=== PATIENT | female | born 1990 | race American Indian/Alaskan Native ===

== ENCOUNTER 2020-01-09 17:21 | Outpatient (CLI) | payer MEDICAID ==
[2020-01-09 18:07] VITALS: BP 115/70
--- NOTE | 2020-01-09 20:13 | Ultrasound Report ---
Limited OB Ultrasound Biophysical profile HISTORY: F/U FALL. TECHNIQUE: Grayscale and color imaging performed. COMPARISON: None FINDINGS: Single viable intrauterine gestation with cephalic presentation. MORRO was 21 cm. Heart rate was 130 bpm. Placenta is seen along the right lateral aspect with no evidence of abruption. On biophysical profile, the fetus received a score of 2 out of 2 for breathing movement, movement, po sture/tone, and MORRO. Total score was 8 out of 8. IMPRESSION: 1. Single viable intrauterine gestation as above. 2. Normal BPP. Signer Name: Bret Sinha MD Signed: 01/09/2020 8:09 PM Workstation Name: [id number]
== END 2020-01-09 21:57 | disposition home or self-care (01) ==
LOC: TRG 17:21
PROVIDERS: ATTEND Obstetrics & Gynecology
DX: O26.892 Other specified pregnancy related conditions, second trimester (principal); W19.XXXA Unspecified fall, initial encounter; Y93.89 Activity, other specified; Y92.89 Other specified places as the place of occurrence of the external cause; Y99.8 Other external cause status; Z3A.26 26 weeks gestation of pregnancy
CPT/HCPCS: 76815; 76819

== ENCOUNTER 2020-02-01 18:26 | Outpatient (CLI) | payer MEDICAID ==
[2020-02-01] MEDS ORDERED: guaiFENesin 100 MG/5 ML ORAL LIQD PO PRN (19:10)
[2020-02-01] MEDS ORDERED: LACTATED RINGERS 500 ML IV ONE (19:11)
[2020-02-01 20:06] VITALS: BP 109/62
[2020-02-01] MEDS ORDERED: LORATADINE/PSEUDOEPHEDRINE 5-120 MG TAB 12HR PO SCH (22:00)
[2020-02-02] MEDS ORDERED: CETIRIZINE 10 MG TAB PO SCH (10:00)
== END 2020-02-01 20:47 | disposition home or self-care (01) ==
LOC: TRG 18:26
PROVIDERS: ATTEND Obstetrics & Gynecology
DX: O26.893 Other specified pregnancy related conditions, third trimester (principal); R05 Cough; Z3A.29 29 weeks gestation of pregnancy

== ENCOUNTER 2020-04-16 19:21 | Outpatient (CLI) | payer MEDICAID ==
[2020-04-16 19:50] VITALS: BP 114/64
== END 2020-04-16 23:55 | disposition home or self-care (01) ==
LOC: TRG 19:21 → APU 19:24 → TRG 23:55
PROVIDERS: ATTEND Obstetrics & Gynecology
DX: O47.1 False labor at or after 37 completed weeks of gestation (principal); Z3A.40 40 weeks gestation of pregnancy
CPT/HCPCS: 59025; Q0177

== ENCOUNTER 2020-04-17 21:51 | Outpatient (CLI) | payer MEDICAID ==
[2020-04-18 00:04] VITALS: BP 116/72
--- NOTE | 2020-04-18 01:03 | Ultrasound Report ---
ULTRASOUND BIOPHYSICAL PROFILE INDICATION / CLINICAL INFORMATION: Evaluate MORRO and well-being. Subjective leaking of fluids. COMPARISON: Obstetrical ultrasound, 01/09/2020 FINDINGS: BREATHING MOVEMENT = 2 GROSS BODY MOVEMENT = 2 TONE = 2 QUALITATIVE AMNIOTIC FLUID VOLUME = 2 TOTAL BIOPHYSICAL SCORE = 8/8 AMNIOTIC FLUID INDEX (cm) = 13.4 PRESENTATION: Cephalic. HEART RATE (beats per minute): 120 IMPRESSION: 1. biophysical profile = 06/28 Signer Name: Cindy Hernandez MD Signed: 04/18/2020 12:58 AM Workstation Name: [id number]
== END 2020-04-18 00:10 | disposition home or self-care (01) ==
LOC: TRG 21:51 → APU 21:52 → TRG 04-18 00:10
PROVIDERS: ATTEND Obstetrics & Gynecology
DX: O42.92 Full-term premature rupture of membranes, unspecified as to length of time between rupture and onset of labor (principal); Z3A.40 40 weeks gestation of pregnancy
CPT/HCPCS: 59025; 76815; 76819

== ENCOUNTER 2020-04-23 15:58 | Inpatient (IN) | payer MEDICAID ==
[2020-04-23] MEDS ORDERED: BUTORPHANOL 2 MG/1 ML INJ IV PRN ×2 (16:33)
[2020-04-23] MEDS ORDERED: TERBUTALINE 1 MG/1 ML INJ IVP PRN (16:33)
[2020-04-23] MEDS ORDERED: fentaNYL 100 MCG/2 ML INJ IV PRN (16:33)
[2020-04-23] MEDS ORDERED: ePHEDrine SULFATE 50 MG/1 ML INJ IV PRN (16:33)
[2020-04-23] MEDS ORDERED: LIDOCAINE (2%) 20 MG/1 ML VIAL 20 ML MDV INFILTRATI ONE (16:33)
[2020-04-23] MEDS ORDERED: MINERAL OIL 30 ML ORAL LIQD PO PRN (16:33)
[2020-04-23] MEDS ORDERED: ONDANSETRON 4 MG/2 ML INJ IV PRN (16:33)
[2020-04-23] MEDS ORDERED: TERBUTALINE 1 MG/1 ML INJ SUB-Q PRN (16:33)
[2020-04-23] MEDS ORDERED: OXYTOCIN DRIP 30 UNITS/500 ML BAG IV SCH ×2 (17:00)
[2020-04-23 17:03] LABS: Hematocrit 35.1 % (30.3-42.9); Hemoglobin 11.3 gm/dl (10.1-14.3); Mean Corpuscular HGB Conc 32 % (30-34); Mean Corpuscular Volume 93 fl (79-97); Platelet Count 218 K/mm3 (140-440); Red Blood Count 3.76 M/mm3 (3.65-5.03); Red Cell Distribution Width 14.9 % (13.2-15.2)
[2020-04-23] MEDS: LACTATED RINGERS 1,000 ML IV SCH (20:34)
[2020-04-23] MEDS ORDERED: DEXMEDETOMIDINE 200 MCG/2 ML VIAL IV ONE (23:39)
--- NOTE | 2020-04-23 23:54 | Anesthesia Consultation ---
Anesthesia Consult and Med Hx Date of service: 04/23/20 - Airway Anesthetic Teeth Evaluation: Good ROM Head & Neck: Adequate Mental/Hyoid Distance: Adequate Mallampati Class: Class II Intubation Access Assessment: Good - Pulmonary Exam CTA: Yes - Cardiac Exam Cardiac Exam: RRR - Pre-Operative Health Status ASA Pre-Surgery Classification: ASA2, Emergency Proposed Anesthetic Plan: Epidural - Pulmonary Hx Asthma: No COPD: No Hx Pneumonia: No - Cardiovascular System Hx Hypertension: No - Central Nervous System Hx Seizures: No Hx Psychiatric Problems: No - Endocrine Hx Renal Disease: No Hx End Stage Renal Disease: No Hx Hypothyroidism: No Hx Hyperthyroidism: No - Hematic Hx Anemia: Yes Hx Sickle Cell Disease: No - Other Systems Hx Alcohol Use: No
--- NOTE | 2020-04-24 00:01 | Progress Note ---
Labor Epidural - Labor Epidural Start Time: 23:44 Stop Time: 23:48 Performed by:: NATO SAWANT Procedure: Patient is requesting a laboring epidural for laboring pain. Patient IDed, H&P reviewed, all questions and concerns were answered, and consent was signed. Timeout was performed at bedside. Patient in sitting position. Sterile prep and drape was performed. [3] ml of 1% lidocaine skin wheal at L[3]- L [4]. 18- gauge Touhy epidural needle was advanced to loss of resistance with air technique. Negative CSF negative blood. Epidural catheter advanced to [15] centimeters. [-] Aspiration [-] test dose. Sterile dressing applied. Patient tolerated procedure.
[2020-04-24] MEDS ORDERED: ePHEDrine SULFATE 50 MG/1 ML INJ IV PRN (00:03)
[2020-04-24] MEDS ORDERED: NALOXONE 2 MG/2 ML INJ IV PRN (00:03)
[2020-04-24] MEDS: LACTATED RINGERS 1,000 ML IV SCH ×2 (00:26→01:10)
[2020-04-24] MEDS ORDERED: fentaNYL-BUPIV 2 MCG/ML-0.125% 200 MCG/100 ML BAG EPIDURAL SCH (01:00)
--- NOTE | 2020-04-24 05:19 | History and Physical Report ---
History of Present Illness Date of examination: 04/24/20 Date of admission: 04/23/20 15:58 Chief complaint: leakage of fluid History of present illness: 30y/o @ 41+2 weeks presents with ruptured membranes. The patient is a transfer of care @ 24 weeks. course has been uncomplicated. Patient is GBS negative Past History Past Medical History: no pertinent history Past Surgical History: no surgical history Social history: single - Obstetrical History Expected Date of Delivery: 04/14/20 Actual Gestation: 41 Week(s) 3 Day(s) : 4 Para: 2 Hx # Term Pregnancies: 2 Number of Pregnancies: 0 Spontaneous Abortions: 1 Induced : 0 Number of Living Children: 2 Medications and Allergies Allergies Allergy/AdvReac Type Severity Reaction Status Date / Time No Known Allergies Allergy Verified 02/01/20 19:08 Active Meds: Active Medications Butorphanol Tartrate (Stadol) 1 mg IV Q2H PRN PRN Reason: Pain, Moderate(4-6) LABOR PAIN Butorphanol Tartrate (Stadol) 2 mg IV Q2H PRN PRN Reason: Pain , Severe (7-10) Ephedrine Sulfate (Ephedrine Sulfate) 10 mg IV Q2M PRN PRN Reason: Hypotension Ephedrine Sulfate (Ephedrine Sulfate) 10 mg IV Q2M PRN PRN Reason: Hypotension Fentanyl (Sublimaze) 100 mcg IV Q2H PRN PRN Reason: Pain,Severe (7-10) LABOR PAIN Oxytocin/Sodium Chloride (Pitocin/Ns 20 Unit/1000ml Drip) 20 units in 1,000 mls @ 125 mls/hr IV DIRECT YECENIA Oxytocin/Sodium Chloride (Pitocin/Ns 30 Unit/500ml) 30 units in 500 mls @ 1 mls/hr IV TITR YECENIA; Protocol Oxytocin/Sodium Chloride (Pitocin/Ns 30 Unit/500ml) 30 units in 500 mls @ 2 mls/hr IV TITR YECENIA; Protocol Last Titration: 04/24/20 00:15 Dose: 2 ml/hr, 2 mls/hr Documented by: Lactated Ringer's (Lactated Ringers) 1,000 mls @ 125 mls/hr IV DIRECT YECENIA Last Admin: 04/24/20 01:10 Dose: 125 mls/hr Documented by: Fentanyl/Bupivacaine/Sodium Chlor (Fentanyl-Bupiv 2 Mcg/Ml-0.125%) 200 mcg in 100 mls @ 12 mls/hr EPIDURAL TITR YECENIA; Protocol Last Admin: 04/24/20 00:23 Dose: 12 mls/hr Documented by: Mineral Oil (Mineral Oil) 30 ml PO QHS PRN PRN Reason: Constipation Naloxone HCl (Naloxone) 0.2 mg IV Q5M PRN PRN Reason: Respiratory sedation Ondansetron HCl (Zofran) 4 mg IV Q8H PRN PRN Reason: Nausea And Vomiting Terbutaline Sulfate (Brethine) 0.25 mg SUB-Q ONCE PRN PRN Reason: Hyperstimulation/Hypertonicity Terbutaline Sulfate (Brethine) 0.25 mg IVP ONCE PRN PRN Reason: Hyperstimulation/Hypertonicity Review of Systems All systems: negative Genitourinary: leakage of fluid - Vital Signs Vital signs: Vital Signs Pulse BP 87 102/58 04/23/20 16:14 04/23/20 16:14 Temp Pulse Resp BP Pulse Ox 97.9 F 84 120/77 100 04/23/20 20:55 04/24/20 05:12 04/24/20 04:40 04/24/20 05:12 - Physical Exam Breasts: Positive: deferred Cardiovascular: Regular rate Lungs: Positive: Clear to auscultation Results Result Diagrams: 04/23/20 16:40 All other labs normal. Assessment and Plan - Patient Problems (1) Spontaneous rupture of amniotic membranes Current Visit: Yes Status: Acute Plan to address problem: admit to L&D (2) Post term Current Visit: Yes Status: Acute
[2020-04-24] MEDS: OXYTOCIN 20 UNIT/1000ML DRIP 20 UNITS/1,000 ML BAG IV SCH ×2 (06:04→06:49)
[2020-04-24] MEDS ORDERED: WITCH HAZEL/ GLYCERIN PAD TP PRN (06:16)
[2020-04-24] MEDS ORDERED: diphenhydrAMINE 25 MG CAP PO PRN (06:16)
[2020-04-24] MEDS ORDERED: ACETAMINOPHEN 325 MG TAB PO PRN (06:16)
[2020-04-24] MEDS ORDERED: ONDANSETRON 4 MG/2 ML INJ IV PRN (06:16)
[2020-04-24] MEDS ORDERED: MAGNESIUM HYDROXIDE (MOM) ORAL LIQD UDC PO PRN (06:16)
[2020-04-24] MEDS ORDERED: PROMETHAZINE 25 MG RECT SUPP PR PRN (06:16)
[2020-04-24] MEDS ORDERED: PROMETHAZINE 25 MG TAB PO PRN (06:16)
[2020-04-24] MEDS ORDERED: LANOLIN/ZINC/DIMETHICONE (LANSINOH) 7 GM TP PRN (06:16)
[2020-04-24] MEDS ORDERED: HYDROcodone/ACETAMINOPHEN 5-325 MG TAB PO PRN (06:16)
--- NOTE | 2020-04-24 06:23 | Procedure Note ---
OB Delivery Note - Delivery Date of Delivery: 04/24/20 Surgeon: JEAN-CLAUDE SMART Estimated blood loss: 200cc - Vaginal Delivery presentation: vertex Intrapartum events: none Delivery augmentation: pitocin Delivery monitor: external FHT, external uterine Route of delivery: Delivery placenta: spontaneous Delivery cord: 3 umbilical vessels Episiotomy: none Delivery laceration: none Anesthesia: epidural Delivery comments: Patient progressed to complete complete +1 and pushed to deliver a live-born male infant with Apgars of 8 and 9 weight 9 pounds 13 ounces. After delivery of the head the shoulders were delivered without difficulty. The infant was bulb suctioned and stimulated. There was delayed cord clamping. The cord was clamped and cut x2 and the infant was placed on the patient's abdomen. The placenta delivered spontaneously intact with a three-vessel cord. The patient sustained no lacerations. Estimated blood loss of 200 mL. - A at 1 minute: 8 at 5 minutes: 9 Infant Gender: Male (Weight 9 pounds 13 ounces)
[2020-04-24] MEDS: IBUPROFEN 600 MG TAB PO SCH ×3 (08:31→23:50)
--- NOTE | 2020-04-24 15:25 | Post Anesthesia Evaluation ---
- Post Anesthesia Evaluation Patient Participated: Yes Airway Patent: Yes Stable Respiratory Function: Yes Nausea/Vomiting: No Temp > 96.8F: Yes Pain Manageable: Yes Adequeate Hydration: Yes Anesthesia Complications: No Block Receding Appropriately: Yes Patient on Ventilator: No
[2020-04-24 19:56] LABS: Hemoglobin 10.2 gm/dl (10.1-14.3)
[2020-04-25] MEDS: IBUPROFEN 600 MG TAB PO SCH (06:06)
--- NOTE | 2020-04-25 07:54 | Progress Note ---
Assessment and Plan A: PPD#1 s/p at term P: Discharge home today per pt request Subjective - Subjective Date of service: 04/25/20 Principal diagnosis: s/p at term Interval history: No issues overnight. Pt requesting to go home if possible. Patient reports: appetite normal, voiding normally, pain well controlled, ambulating normally, no dizzy ambulation [place]: doing well Objective - Vital Signs Latest vital signs: Vital Signs Temp Pulse Resp BP BP Pulse Ox 04/24/20 23:43 98.2 F 87 20 107/66 97 04/24/20 16:05 97.8 F 82 18 110/67 98 04/24/20 13:15 98 F 88 18 108/56 96 04/24/20 09:25 98.9 F 83 14 109/65 99 04/24/20 09:03 82 109/59 04/24/20 08:48 77 113/67 04/24/20 08:40 98.5 F 04/24/20 08:33 82 110/62 04/24/20 08:18 83 107/57 04/24/20 08:03 76 107/62 Intake and Output 04/24/20 04/25/20 04/25/20 22:59 06:59 14:59 Intake Total 360 Balance 360 Intake: Oral 360 Other: Total, Intake Amount 120 # Voids Void 1 1 - Exam Breasts: Present: deferred Abdomen: Present: soft Uterus: Present: fundal height at umbilicus Extremities: Present: edema (trace )
--- NOTE | 2020-04-25 07:56 | Discharge Summary ---
Providers - Providers Date of Admission: 04/23/20 15:58 Date of discharge: 04/25/20 Attending physician: JEAN-CLAUDE SMART Primary care physician: JEAN-CLAUDE SMART Hospitalization Reason for admission: rupture of membranes Delivery: Procedure details: Please see delivery note. Episiotomy: none Laceration: none Other procedures: none complications: none Discharge diagnosis: IUP at term delivered [place] baby: male Hospital course: Patient was admitted with rupture of membranes and went on to deliver a viable male via spontaneous vaginal delivery. Her course was uncomplicated and she met discharge criteria on day #1. She will follow-up in 4 weeks for a examination. Condition at discharge: Stable Disposition: DC-01 TO HOME OR SELFCARE - Discharge Diagnoses (1) Term of male Status: Acute Plan - Discharge Medications Prescriptions: Ibuprofen [Motrin] 800 mg PO Q8HR PRN #30 tablet PRN Reason: Pain, Moderate (4-6) HYDROcodone/APAP 5-325 [[place] 5/325] 1 each PO Q6HR PRN #20 tablet PRN Reason: Pain - Provider Discharge Summary Activity: routine, no sex for 6 weeks, no heavy lifting 4 weeks, no strenuous exercise Diet: routine Instructions: routine Additional instructions: [] Smoking cessation referral if applicable(refer to patient education folder for contact #) [] Refer to [facility] Booklet Call your doctor immediately for: * Fever > 100.5 * Heavy vaginal bleeding ( >1 pad per hour) * Severe persistent headache * Shortness of breath * Reddened, hot, painful area to leg or breast * Drainage or odor from incision. * Keep incision clean and dry at all times and follow doctor's instructions regarding bathing/showering - Follow up plan Follow up: CHAYO OLMOS CNM [Advanced Practice Nurse] - 6 Weeks (Please schedule an appointment for your son for circumcision before he is 1 month old) Forms: [facility] Discharge Summary, [place] DC Identification Form
[2020-04-25 14:38] VITALS: BP 111/70
== END 2020-04-25 12:10 | disposition home or self-care (01) | DRG 775 ==
LOC: LD 15:58 → OB 04-24 09:34
PROVIDERS: ADMIT Obstetrics & Gynecology; ATTEND Obstetrics & Gynecology
PROC: 10E0XZZ Delivery of Products of Conception, External Approach (ICD-10-PCS; principal; 2020-04-24)
PROC: 3E0R3BZ Introduction of Anesthetic Agent into Spinal Canal, Percutaneous Approach (ICD-10-PCS; 2020-04-24)
PROC: 00HU33Z Insertion of Infusion Device into Spinal Canal, Percutaneous Approach (ICD-10-PCS; 2020-04-24)
DX: O48.0 Post-term pregnancy (principal); Z3A.41 41 weeks gestation of pregnancy; Z37.0 Single live birth
CPT/HCPCS: 36415; 85014; 85018; 85027; 86592; 86850; 86900; 86901; G0378; J2590; J3490; J7120